=== PATIENT | male | born 1965 | race Caucasian/White ===

== ENCOUNTER 2017-10-11 07:08 | Emergency (ER) | payer SELFPAY ==
[2017-10-11] MEDS ORDERED: Famotidine 20 MG TAB ONE (08:08)
[2017-10-11] MEDS ORDERED: predniSONE 20 MG TAB ONE (08:08)
[2017-10-11] MEDS ORDERED: diphenhydrAMINE 50 MG/ML VIAL ONE (08:09)
[2017-10-11] MEDS ORDERED: hydrOXYzine 25 MG TAB ONE (09:40)
[2017-10-11] MEDS ORDERED: hydrOXYzine 25 MG TAB PO SCH (09:45)
== END 2017-10-11 11:11 | disposition home or self-care (01) ==
LOC: ERS 07:08
DX: L50.9 Urticaria, unspecified (principal)
CPT/HCPCS: 96361; 96374; J1200; J7506

== ENCOUNTER 2017-11-26 20:53 | Emergency (ER) | payer SELFPAY ==
[2017-11-26] MEDS ORDERED: Clindamycin/D5W 900 mg/50 ml Premix Bag ONE (22:58)
[2017-11-26] MEDS ORDERED: Ketorolac Tromethamine 30 MG/ML VIAL ONE (22:58)
[2017-11-26] MEDS ORDERED: Acetaminophen 500 MG TAB ONE (22:58)
[2017-11-26] MEDS ORDERED: Lidocaine 1% w/Epinephrine 1:100K 20 ML VIAL ONE (23:01)
[2017-11-26 23:32] LABS: #Eosinphils 0.2 thou/uL (0.0-0.7); #Lymphocytes 1.7 thou/uL (1.20-3.40); #Monocytes 1.2 thou/uL (0.11-0.59); #Neutrophils 9.5 thou/uL (1.40-6.50); %Basophils 0.3 % (0.0-1.0); %Eosinophils 1.2 % (0.0-10.0); %Lymphocytes 13.6 % (21.0-51.0); %Monocytes 9.5 % (0.0-10.0); %Neutrophils 75.3 % (42.0-75.0); Hemoglobin 14.1 g/dL (14.0-18.0); Mean Corpuscular HGB CONC 34.5 g/dL (32.0-36.0); Mean Corpuscular Hemoglobin 30.2 pg (27.0-31.0); Mean Corpuscular Volume 87.6 fL (78.0-98.0); Mean Platelet Volume 6.7 fL (7.4-10.4); Platelet Count 280 thou/uL (130-400); RBC Distribution Width 12.4 % (11.5-14.5); Red Blood Cell (RBC) Count 4.68 mill/uL (4.70-6.10); White Blood Cell (WBC) Count 12.6 thou/uL (4.8-10.8)
[2017-11-26 23:47] LABS: ALT (SGPT) 17 U/L (8-55); AST (SGOT) 16 U/L (5-34); Albumin 3.9 g/dL (3.5-5.0); Alkaline Phosphatase 59 U/L (40-150); Anion Gap 13 mmol/L (10-20); BUN (Urea Nitrogen) 16 mg/dL (8.4-25.7); Bilirubin, Total 0.7 mg/dL (0.2-1.2); Calc. Creatinine Clearance 0 mL/min (70-130); Calcium 8.8 mg/dL (7.8-10.44); Carbon Dioxide 21 mmol/L (22-29); Chloride 104 mmol/L (98-107); Estimated GFR-MDRD 85; Globulin 3.1 g/dL (2.4-3.5); Glucose 106 mg/dL (70-105); Sodium 134 mmol/L (136-145)
== END 2017-11-27 00:40 | disposition home or self-care (01) ==
LOC: ERS 20:53
DX: L02.414 Cutaneous abscess of left upper limb (principal); L02.811 Cutaneous abscess of head [any part, except face]; F41.9 Anxiety disorder, unspecified; F32.9 Major depressive disorder, single episode, unspecified
CPT/HCPCS: 80053; 85025; 96361; 96365; 96375; J1885; J2001; J3490

== ENCOUNTER 2018-09-09 11:15 | Emergency (ER) | payer SELFPAY ==
--- NOTE | 2018-09-09 11:35 | RAD ---
LEFT FOOT THREE VIEWS: HISTORY: The patient stepped on glass one month ago with continued left foot pain. TECHNIQUE: AP, lateral, and oblique views left foot obtained. FINDINGS: Images demonstrate a triangular-shaped radiopaque density lateral and inferior to the soft tissues of the 5th metatarsophalangeal joint. This is concerning for a retained radiopaque foreign body. No evidence of other obvious foreign body is seen. No evidence of acute bony fractures or lesions se en. IMPRESSION: Single radiopaque fragment, concerning for possible glass fragment, lateral and inferior to the 5th m etatarsophalangeal joint. Transcribed Date/Time: 09/09/2018 11:42 AM
[2018-09-09] MEDS ORDERED: Lidocaine 1% (PF) 30 ML VIAL ONE (14:15)
[2018-09-09] MEDS ORDERED: Adacel (T-DAP) 0.5 ML SYRINGE ONE (14:59)
== END 2018-09-09 15:10 | disposition home or self-care (01) ==
LOC: ERS 11:15
DX: S91.342A Puncture wound with foreign body, left foot, initial encounter (principal); Z71.6 Tobacco abuse counseling; F41.9 Anxiety disorder, unspecified; F32.9 Major depressive disorder, single episode, unspecified; W25.XXXA Contact with sharp glass, initial encounter
CPT/HCPCS: 28190; 90471; 90715; 99406; J2001

== ENCOUNTER 2019-03-24 13:18 | Emergency (ER) | payer SELFPAY ==
[2019-03-24] MEDS ORDERED: Bupivacaine 0.5% 10 ML VIAL ONE (14:06)
[2019-03-24] MEDS ORDERED: Ketorolac Tromethamine 30 MG/ML VIAL ONE (14:18)
== END 2019-03-24 15:54 | disposition home or self-care (01) ==
LOC: ERS 13:18
DX: L03.012 Cellulitis of left finger (principal); F41.9 Anxiety disorder, unspecified; F32.9 Major depressive disorder, single episode, unspecified
CPT/HCPCS: 10060; 87070; 87077; 87186; 87205; 96372; J1885; J3490

== ENCOUNTER 2022-10-05 10:33 | Emergency (ER) | payer SELFPAY ==
[~2022-10-05 10:33] MED LIST: Iopamidol-370 76% 500 ML MDV (1 ML CHARGE) ONE
[2022-10-05 12:32] LABS: #Eosinphils 0.4 thou/uL (0.0-0.7); #Monocytes 0.8 thou/uL (0.11-0.59); #Neutrophils 6.6 thou/uL (1.40-6.50); %Basophils 0.4 % (0.0-1.0); %Eosinophils 3.9 % (0.0-10.0); %Monocytes 7.9 % (0.0-10.0); %Neutrophils 69.5 % (42.0-75.0); Hemoglobin 15.5 g/dL (14.0-18.0); Mean Corpuscular HGB CONC 32.2 g/dL (32.0-36.0); Mean Corpuscular Hemoglobin 27.5 pg (27.0-31.0); Mean Corpuscular Volume 85.4 fl (78.0-98.0); Mean Platelet Volume 9.1 fL (7.4-10.4); Platelet Count 318 10x3/uL (130-400); RBC Distribution Width 14.6 % (11.5-14.5); Red Blood Cell (RBC) Count 5.63 mill/uL (4.70-6.10); White Blood Cell (WBC) Count 9.5 10x3/uL (4.8-10.8)
[2022-10-05 12:58] LABS: Acetaminophen Less than 10 mcg/mL (10.0-30.0); Alcohol Less than 10.0 mg/dL (Less than 10); Salicylate Less than 8.0 mg/dL (15.0-30.0)
[2022-10-05 13:01] LABS: ALT (SGPT) 18 U/L (8-55); AST (SGOT) 13 U/L (5-34); Albumin 4.5 g/dL (3.5-5.0); Alkaline Phosphatase 71 U/L (40-110); Anion Gap 15 mmol/L (10-20); BUN (Urea Nitrogen) 13 mg/dL (8.4-25.7); Bilirubin, Total 0.8 mg/dL (0.2-1.2); CK (CPK) 71 U/L (30-200); Calc. Creatinine Clearance 0 mL/min (70-130); Calcium 9.9 mg/dL (7.8-10.44); Carbon Dioxide 26 mmol/L (22-29); Chloride 99 mmol/L (98-107); Estimated GFR 102; Globulin 3.9 g/dL (2.4-3.5); Glucose 91 mg/dL (70-105); Lipase 13 U/L (8-78); Potassium 4.2 mmol/L (3.5-5.1); Protein, Total 8.4 g/dL (6.0-8.3); Sodium 136 mmol/L (136-145)
== END 2022-10-05 14:52 | disposition home or self-care (01) ==
LOC: ERS 10:33
DX: R06.00 Dyspnea, unspecified (principal)
CPT/HCPCS: 71045; 71275; 80053; 80307; 82550; 83690; 83880; 84443; 84484; 85025; 85379; 93005; Q9967

== ENCOUNTER 2023-02-13 09:56 | Emergency (ER) | payer OTHER, SELFPAY ==
[2023-02-13] MEDS ORDERED: Ketorolac Tromethamine 30 MG/ML VIAL ONE (11:35)
[2023-02-13 12:45] LABS: #Eosinphils 0.3 thou/uL (0.0-0.7); #Monocytes 0.8 thou/uL (0.11-0.59); #Neutrophils 7.6 thou/uL (1.40-6.50); %Basophils 0.4 % (0.0-1.0); %Eosinophils 2.7 % (0.0-10.0); %Lymphocytes 14.3 % (21.0-51.0); %Neutrophils 74.2 % (42.0-75.0); Hematocrit 45.3 % (42.0-52.0); Hemoglobin 14.4 g/dL (14.0-18.0); Mean Corpuscular HGB CONC 31.8 g/dL (32.0-36.0); Mean Corpuscular Hemoglobin 28.6 pg (27.0-31.0); Mean Corpuscular Volume 89.9 fl (78.0-98.0); Mean Platelet Volume 9.8 fL (7.4-10.4); Platelet Count 337 10x3/uL (130-400); RBC Distribution Width 14.2 % (11.5-14.5); Red Blood Cell (RBC) Count 5.04 mill/uL (4.70-6.10); White Blood Cell (WBC) Count 10.3 10x3/uL (4.8-10.8)
[2023-02-13 13:02] LABS: ALT (SGPT) 14 U/L (8-55); AST (SGOT) 13 U/L (5-34); Albumin 4.1 g/dL (3.5-5.0); Alkaline Phosphatase 62 U/L (40-110); Anion Gap 14 mmol/L (10-20); BUN (Urea Nitrogen) 14 mg/dL (8.4-25.7); Bilirubin, Total 0.6 mg/dL (0.2-1.2); Calc. Creatinine Clearance 0 mL/min (70-130); Calcium 9.4 mg/dL (7.8-10.44); Carbon Dioxide 26 mmol/L (22-29); Chloride 101 mmol/L (98-107); Estimated GFR 94; Globulin 4.3 g/dL (2.4-3.5); Glucose 91 mg/dL (70-105); Potassium 4.7 mmol/L (3.5-5.1); Protein, Total 8.4 g/dL (6.0-8.3); Sodium 136 mmol/L (136-145)
== END 2023-02-13 13:55 ==
LOC: ERS 09:56
DX: M93.261 Osteochondritis dissecans, right knee (principal)
CPT/HCPCS: 36415; 80053; 85025; 86140; 96372; J1885

== ENCOUNTER 2023-08-09 14:06 | Emergency (ER) | payer SELFPAY ==
[2023-08-09] MEDS ORDERED: Ketorolac Tromethamine 30 MG (1 mL) VIAL ONE (15:01)
== END 2023-08-09 16:33 | disposition home or self-care (01) ==
LOC: ERS 14:06
DX: M79.10 Myalgia, unspecified site (principal); Z86.73 Personal history of transient ischemic attack (TIA), and cerebral infarction without residual deficits
CPT/HCPCS: 96372; J1885

== ENCOUNTER 2025-02-21 10:17 | Emergency (ER) | payer MEDICAID, OTHER ==
[2025-02-21] MEDS ORDERED: HYDROcodone/Acetaminophen 5/325 mg Tablet ONE (11:01)
== END 2025-02-21 12:22 | disposition home or self-care (01) ==
LOC: ERS 10:17
DX: M54.32 Sciatica, left side (principal); I10 Essential (primary) hypertension; E78.5 Hyperlipidemia, unspecified
CPT/HCPCS: 96372